=== PATIENT | male | born 1980 | race Caucasian/White ===

== ENCOUNTER 2017-09-06 09:49 | Emergency (ER) | payer OTHER ==
[~2017-09-06] VITALS: Ht 182.9 cm; Wt 84.0 kg
[~2017-09-06 09:49] MED LIST: AMOXICILLIN875 MG PO; DOXYCYCLINE HY100 MG PO; ULTRAM50 MG PO
[2017-09-06] MEDS ORDERED: ZOFRAN8 MG PO (10:43)
[2017-09-06] MEDS ORDERED: PREVACID30 MG PO (10:44)
[2017-09-06] MEDS ORDERED: ZANTAC150 MG PO (10:45)
[2017-09-06] MEDS ORDERED: CARAFATE1 GM PO (10:47)
[2017-09-06 13:07] VITALS: BP 124/88
== END 2017-09-06 13:07 | disposition home or self-care (01) ==
LOC: EME 09:49
DX: T78.1XXA Other adverse food reactions, not elsewhere classified, initial encounter (principal); K21.9 Gastro-esophageal reflux disease without esophagitis; Z87.891 Personal history of nicotine dependence
CPT/HCPCS: 94640; 99281; 99285; J1200; J2930; S0028